=== PATIENT | female | born 1955 | race Caucasian/White ===

== ENCOUNTER 2017-03-30 07:42 | Emergency (ER) | payer BC ==
[2017-03-30 08:14] VITALS: BP 137/85
--- NOTE | 2017-03-30 11:11 | UC ---
Nataliya Rios Anna, scribed for Shakila Duarte DO on 03/30/17 at 0853 . Throat Pain/Nasal Yung HPI - HPI Summary HPI Summary: Patient is a 61 y/o female coming [place] [facility] [place] with an intermittent sore throat that began ten days ago. Per triage notes, the severity of the pain is described as 4/10. It hurts to swallow, though she is able to swallow her own spit. This has been accompanied by an intermittent ear ache, first in her right ear, then in her left ear. She has also had a productive cough with green sputum , accompanied by chest congestion, rhinorrhea, and watery eyes. Denies hemoptysis, SOB, nausea, emesis, abd pain, fever, and chills. 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 She started taking generic, non-drowsy Sugar at the onset, but the symptoms have not resolved. She tried an Rosa Maria seltzer, which did not alleviate the symptoms. She has not tried a Netti pot before. She had a known contact with a person who had bronchitis and has had more exposure to pollen and dust than normal. She reports having similar symptoms 1-3 times a year, which she sometimes attributes to allergies. Patient medications were reviewed this visit. - History of Current Complaint Chief Complaint: UCRespiratory Stated Complaint: SORE THROAT EAR PAIN Time Seen by Provider: 03/30/17 08:42 Hx Obtained From: Patient ?: No Onset/Duration: Gradual Onset, Lasting Weeks, Still Present Severity: Moderate Pain Intensity: 4 Pain Scale Used: 0-10 Numeric Cough: Sputum Appears - green Associated Signs & Symptoms: Positive: Dysphagia - pain. Negative: Drooling, Wheezing, Hoarseness, Sinus Discomfort, Fever, Vomiting - Allergies/Home Medications Allergies/Adverse Reactions: Allergies Allergy/AdvReac Type Severity Reaction Status Date / Time No Known Allergies Allergy Verified 10/29/13 15:44 Home Medications: Home Medications Aspirin [Aspirin 81 MG TAB] 1 tab PO DAILY 03/30/17 [History Confirmed 03/30/17] Omeprazole CAP* [Prilosec CAP* 20 MG] 1 tab PO DAILY 03/30/17 [History Confirmed 03/30/17] PMH/Surg Hx/FS Hx/Imm Hx Endocrine History Of: Denies: Diabetes, Thyroid Disease Cardiovascular History Of: Denies: Cardiac Disorders, Hypertension Respiratory History Of: Denies: COPD, Asthma GI/ History Of: Reports: Gastroesophageal Reflux Denies: Ulcer Cancer History Of: Denies: Breast Cancer - Surgical History Surgical History: Yes Surgery Procedure, Year, and Place: GALL BLADDER. HYSTERECTOMY - Family History Known Family History: Negative: Cardiac Disease, Hypertension, Diabetes - Social History Lives: With Family Alcohol Use: None Substance Use Type: None Smoking Status (MU): Never Smoked Tobacco - Immunization History Most Recent Influenza Vaccination: NO Review of Systems Constitutional: Negative Skin: Negative Eyes: Drainage ENT: Sore Throat, Ear Ache, Nasal Discharge Respiratory: Cough Cardiovascular: Chest Pain - chest congestion Gastrointestinal: Negative Genitourinary: Negative Motor: Negative Neurovascular: Negative Musculoskeletal: Negative Neurological: Negative Psychological: Negative All Other Systems Reviewed And Are Negative: Yes Physical Exam Triage Information Reviewed: Yes Appearance: Well-Appearing, No Pain Distress, Well-Nourished Vital Signs: Initial Vital Signs Temp 98.3 F 03/30/17 08:07 Pulse 71 03/30/17 08:07 Resp 16 03/30/17 08:07 BP 137/85 03/30/17 08:07 Pulse Ox 99 03/30/17 08:07 Vital Signs Reviewed: Yes Eyes: Positive: Conjunctiva Clear. Negative: Discharge ENT: Positive: Hearing grossly normal, Pharynx normal, TMs normal, Other: - pale , boggy nasal mucosa, allergic shiners. Negative: Tonsillar swelling, Tonsillar exudate, Trismus, Muffled/hoarse voice Neck exam: Normal Neck: Positive: Supple Respiratory: Positive: Lungs clear, Normal breath sounds, No respiratory distress, No accessory muscle use, Other: - Prolonged expiration at bases bialterally Cardiovascular: Positive: RRR, No Murmur Musculoskeletal Exam: Normal Neurological: Positive: Alert, Muscle Tone Normal Psychological Exam: Normal Psychological: Positive: Age Appropriate Behavior Skin Exam: Other - warm, dry, normal color Throat Pain/Nasal Course/Dx - Differential Dx/Diagnosis Differential Diagnosis/HQI/PQRI: Pharyngitis, Sinusitis, URI Provider Diagnoses: Allergies, Bronchospasm Discharge - Discharge Plan Condition: Stable Disposition: HOME Prescriptions: Albuterol HFA INHALER* [Ventolin HFA Inhaler*] 2 puff INH Q4H PRN #1 mdi PRN Reason: Sob/Wheezing Benzonatate CAP* [Tessalon 100 MG CAP*] 100 mg PO TID PRN #30 cap PRN Reason: Cough Fluticasone NASAL * [Flonase *] 2 spray BOTH NARES DAILY #1 btl guaiFENesin ER TAB [Mucinex*] 600 mg PO BID PRN #1 box PRN Reason: Cough Patient Education Materials: Benzonatate (By mouth), Albuterol (By breathing), Oxymetazoline (Into the nose), Allergies (ED), Bronchospasm (ED) Referrals: Ignacio Umanzor MD [Primary Care Provider] - (FOLLOW UP IN 3-5 DAYS IF NOT IMPROVING. FOLLOW UP SOONER IF YOUR SYMPTOMS WORSEN OR NEW SYMPTOMS DEVELOP.) Additional Instructions: TRY USING THE NETTI POT IN THE MORNINGS DISCUSSED. YOU MUST ALWAYS USE CLEAN WATER. REMEMBER, POSTURE IS AN IMPORTANT FACTOR IN SINUS DRAINAGE. MOVE YOUR NECK, BREATHE. AFTER USING THE NETI POT, USE THE NASAL DECONGESTANT SPRAY THEN GET INTO A WARM SHOWER. A FEW HOURS LATER USE NASAL STEROID. IN THE EVENING, YOU CAN REPEAT THE NASAL DECONGESTANT SPRAY. AFTER 3 DAYS, YOU SHOULD STOP THE NASAL DECONGESTANT SPRAY BUT CONTINUE TO USE THE NETI POT AND THE NASAL STEROID. TALK TO YOUR PCP ABOUT HOW LONG YOU SHOULD CONTINUE TO USE THE NASAL STEROID. NASAL CORTICOSTEROID INHALER: Nasal "cortisone" inhalers decrease swelling and inflammation in the nasal passages. Nasal steroids decrease the effects of allergy and infection without affecting your whole body. They do NOT cause the side effects we see with steroid shots or pills. These inhalers are a long-term investment in keeping your nose and sinuses clear. You probably won't notice any difference for at least a day. Sometimes it takes several days. Once you have noticed improvement, you can cut back on the inhaler. If your problem only occurs at certain times of the year, you can stop it when you' re better. There's no harm in using it for a long time. Some patients may notice a dry tight throat at first. If you develop severe pain, fever, or foul nasal drainage, see the doctor at once. NASAL SPRAYS AND DROPS: Decongestant nasal sprays and drops often give dramatic relief from congestion. They are often recommended for patients with sinus infection to assist with sinus drainage. Persons with high blood pressure should consult the doctor before using these nasal sprays. Afrin and Derek-Synephrine are common puts-bna-egqbuxu preparations. They should not be used for more than three days, as "rebound" congestion can occur - - the congestion flares as the drug wears off. A way of dealing with this rebound congestion problem is to medicate only one nostril each time, allowing the other nostril to recover from the medicine' s effects. When you no longer need the drug during the day, spray only one nostril each night. This helps you sleep well without severe rebound congestion. Call the doctor if you develop severe headache, palpitations, or chest pain. INHALED BRONCHODILATORS: You have received a prescription for an inhaled bronchodilator -- a medication which stimulates the airways in the lung to dilate. This improves the flow of air in asthma, bronchitis, and emphysema. These medicines have some similarity to adrenaline, and can cause similar side effects: shakiness, racing heart, and a sense of nervousness. These side effects decrease with time. Contact your doctor if these side effects are severe. Do not over-use the medicine. Too-frequent use of the inhaler may make it ineffective. Call your doctor if the inhaler is not controlling your symptoms at the prescribed doses. EXPECTORANT MEDICATION: WE SENT IN A SCRIPT FOR MUCINEX SO THAT IT IS EASIER FOR YOU TO PICK THE RIGHT MED AT THE PHARMACY. HOWEVER, YOU CAN ALSO GO TO THE [employer] [facility] AND BUY PLAIN GUAIFENESIN WITHOU BINDERS OR FILLERS. An expectorant medicine has been prescribed. This type of drug makes mucous thinner, helping the sinuses, nose, and bronchial tubes to remain free of pus and mucous. Expectorants make a cough less severe and more comfortable, and help infected sinuses drain. In general, antihistamines defeat the purpose of the expectorant by making mucous thicker. They should be avoided unless specifically recommended by your physician. TESSALON PERLES: You have received a prescription for Tessalon Perles (benzonatate). This is a non-narcotic medicine for relief of cough. It usually works in about 15- 20 minutes and lasts around four hours. Tessalon Perles should be swallowed. They should not be chewed or dissolved in the mouth (this can produce temporary numbing of the mouth and choking can occur). If you develop any adverse effects such as wheezing, shortness of breath, hives, rash, itching, or lightheadedness, please return at once. The documentation as recorded by the Nataliya mahoney Anna accurately reflects the service I personally performed and the decisions made by , Shakila Duarte DO.
== END 2017-03-30 09:37 | disposition home or self-care (01) ==
LOC: UCEAST 07:42
DX: J30.9 Allergic rhinitis, unspecified (principal); J98.01 Acute bronchospasm; K21.9 Gastro-esophageal reflux disease without esophagitis; Z90.49 Acquired absence of other specified parts of digestive tract; Z90.710 Acquired absence of both cervix and uterus
CPT/HCPCS: 99212; G0463

== ENCOUNTER 2019-11-25 10:01 | Inpatient (IN) | payer MEDICARE ==
--- NOTE | 2019-11-16 12:45 | HP ---
HISTORY AND PHYSICAL: DATE OF ADMISSION/SURGERY: 11/25/19 DATE OF OFFICE VISIT: 11/12/19 SURGEON: Sade Bonner MD * (DICTATED BY CARLOS EDUARDO MONTIEL) PROCEDURE: Left total knee arthroplasty. CHIEF COMPLAINT: Left knee pain. HISTORY OF PRESENT ILLNESS: Ms. Chris is a 63-year-old female with end-stage osteoarthritis of the left knee. She has failed conservative treatment and elected to proceed with a left total knee arthroplasty. PAST MEDICAL HISTORY: GERD and sleep apnea. PAST SURGICAL HISTORY: Cholecystectomy and hysterectomy. CURRENT MEDICATIONS: 1. Omeprazole 20 mg a day. 2. Multivitamin. 3. Claritin. ALLERGIES: No known drug allergies. FAMILY HISTORY: Cancer and Alzheimer's. SOCIAL HISTORY: She is a 63-year-old female. She lives with her spouse. She does not smoke or use drugs or alcohol. REVIEW OF SYSTEMS: A complete 14-point review of systems was reviewed with the patient, it was positive for GERD. She denies history of DVT, PE, hepatitis, HIV, or anesthesia problems. PHYSICAL EXAMINATION GENERAL: She is well developed, well nourished, in no acute distress. VITAL SIGNS: She stands 65 inches tall, weighs 253 pounds. Her blood pressure is 142/74, her heart rate is 60. HEENT: Normocephalic, atraumatic. NECK: Supple. No palpable lymph nodes. PULMONARY: The lungs are clear to auscultation bilaterally. CARDIO: Regular rate and rhythm. Strong S1, S2. ABDOMEN: Soft, nontender, nondistended. MUSCULOSKELETAL: Left lower extremity: The skin is intact. There are no open wounds or abrasions. There is a moderate effusion of the left knee joint. She has some tenderness over the medial and lateral joint line. Range of motion is 5 to 120 degrees of flexion with patellofemoral crepitus. She is able to dorsiflex and plantarflex. She has a 2+ dorsalis pedis pulse and intact sensation. ASSESSMENT AND PLAN: Ms. Chris is a 63-year-old female with end-stage osteoarthritis of the left knee. She has failed conservative treatment and elected to proceed with a left total knee arthroplasty. The surgery is scheduled for 11/25/[address] Bonner discussed the risks and benefits of the surgery at today's visit and all of her questions were answered. She will follow up with Dr. Bonner 2 weeks after the surgery. CARLOS EDUARDO MONTIEL [id number]/CPS #: [id number] ACACIA
[~2019-11-25 10:01] MED LIST: Acetaminophen TAB* 325 MG PO ONE; Buffered Lidocaine 1% SYRIN* 1 ML/SYRINGE INTRADERM ONE; Gabapentin CAP(*) 300 MG PO ONE; Lactated Ringers 1000 ML Bag* 1,000 ML IV SCH; Midazolam* 1 MG/ML 2 ML VIAL (2 MG) ONE; Tranexamic Acid 1,000 MG in NS 0.9% 50 ML* (outpatient use) IV SCH; celeCOXIB CAP* 200 MG PO ONE; fentaNYL* 50 MCG/ML 2 ML VIAL (100 MCG VIAL) ONE
[2019-11-25] MEDS ORDERED: Buffered Lidocaine 1% SYRIN* 1 ML/SYRINGE INTRADERM ONE (10:30)
[2019-11-25] MEDS ORDERED: celeCOXIB CAP* 200 MG ONE (10:30)
[2019-11-25] MEDS ORDERED: Gabapentin CAP(*) 300 MG ONE (10:30)
[2019-11-25] MEDS ORDERED: ceFAZolin 2 GM PREMIX in ORs 2 GM/50 ML BAG ONE (10:31)
[2019-11-25] MEDS ORDERED: HYDROmorphone INJ1* 1 MG/ML SYRINGE IV PRN (11:32)
[2019-11-25] MEDS ORDERED: Naloxone* 0.4 MG/ML 1 ML VIAL IV PRN (11:32)
[2019-11-25] MEDS ORDERED: Acetaminophen TAB* 325 MG ONE (11:32)
[2019-11-25] MEDS ORDERED: Lidocaine 1% INJ* 10 MG/ML 30 ML SDV ONE (11:40)
[2019-11-25] MEDS ORDERED: Bupivacaine 0.5% SDV PF* 30ML VIAL ONE (11:40)
[2019-11-25] MEDS ORDERED: Ondansetron INJ* 2 MG/ML VIAL ONE (12:48)
[2019-11-25] MEDS ORDERED: EPHEDrine (Pressors)* 50 MG/ML VIAL ONE (12:48)
[2019-11-25] MEDS ORDERED: Phenylephrine 40 MCG/ML SYRINGE ONE (12:48)
[2019-11-25] MEDS ORDERED: Dexamethasone IV* 4 MG/ML 1 ML (4 MG) ONE (12:48)
[2019-11-25] MEDS ORDERED: Propofol* 500 MG/50 ML BTL ONE (12:48)
[2019-11-25] MEDS ORDERED: Propofol* 10 MG/ML 20 ML BTL ONE (13:37)
[2019-11-25] MEDS ORDERED: Midazolam* 1 MG/ML 2 ML VIAL (2 MG) ONE (13:42)
[2019-11-25] MEDS ORDERED: Acetaminophen TAB* 325 MG PO PRN (15:08)
[2019-11-25] MEDS ORDERED: Ondansetron ODT TAB* 4 MG PO PRN (15:08)
[2019-11-25] MEDS ORDERED: diPHENhydraMINE PO* 25 MG PO PRN (15:08)
[2019-11-25] MEDS ORDERED: diPHENhydraMINE IV* 50 MG/ML 1 ml VIAL (BENADRYL) IV PRN (15:08)
[2019-11-25] MEDS ORDERED: oxyCODONE/Acetamin 5/325 MG* TAB PO PRN (15:08)
[2019-11-25] MEDS ORDERED: Morphine INJ* 2 MG/ML 1 ML SYRINGE (TWO MG - NEW SYRINGE VERSION) IV PRN (15:08)
[2019-11-25] MEDS ORDERED: Ondansetron INJ* 2 MG/ML VIAL IV PRN (15:08)
[2019-11-25] MEDS ORDERED: Cyclobenzaprine TAB* 10 MG PO PRN (15:08)
[2019-11-25] MEDS ORDERED: Magnesium Hydroxide LIQ* 30 ML UDC PO PRN (15:08)
[2019-11-25] MEDS ORDERED: Fluticasone NASAL SPRAY 50MCG* 16 gm SPRAY BTL BOTH NARES PRN (15:10)
[2019-11-25] MEDS ORDERED: Nystatin CREAM* 15 GM TUBE TOPICAL PRN (15:10)
[2019-11-25] MEDS ORDERED: Albuterol HFA INHALER* 8 gm MDI INH PRN (15:10)
[2019-11-25] MEDS ORDERED: Lactated Ringers 1000 ML Bag* 1,000 ML IV SCH (16:00)
[2019-11-25] MEDS ORDERED: oxyCODONE SR TAB(*) 10 MG TAB.SR ONE (16:17)
[2019-11-25] MEDS: oxyCODONE TAB* 5 MG TAB PO PRN ×3 (16:19→20:10)
[2019-11-25] MEDS ORDERED: oxyCODONE TAB* 5 MG TAB ONE (16:21)
--- NOTE | 2019-11-25 16:50 | OP ---
Operative Report - Blank - Operative Report Date of Operation: 11/25/19 Note: MARLENY PILLAI 1955 Date of Surgery: 11/25/19 Sade Bonner MD Azure Architect: Bernard THIBODEAUX did help throughout the procedure with preparation of the knee, wound retraction, manipulation of the knee, and wound closure. Anesthesiologist: Dr. Diaz Anesthesia Type: Spinal Preoperative Diagnosis: Left severe degenerative osteoarthritis of the knee Postoperative Diagnosis: As above Procedure Performed: Left Total Knee Arthroplasty Tourniquet time: 52 minutes Complications: None Specimen: Bone and cartilage from the left knee joint sent to pathology. Hardware Used: Cemented Gonzalez and Nephew total knee hardware was used - For the femur a size 6 left narrow oxinium legion posterior stabilized femoral component , for the tibia a size 4 left farshad II tibial baseplate, for the insert a size 9mm 3-4 high flex posterior stabilized articular polyethylene insert, and for the patella a size 32 3-peg all poly patella. Brief History/Indication: MARLENY PILLAI was known in clinic and had a history of severe left knee pain and swelling. She failed conservative treatment with anti-inflammatories, pain pills, intra-articular injections and physical therapy. She elected to undergo left total knee arthroplasty due to continued pain and decreased quality of life. Radiographs showed severe end stage osteoarthritis of the knee with bone on bone contact. Informed consent was obtained from the patient. She understood the risks of surgery included but were not limited to: bleeding, infection, damage to nearby structures, intraoperative fracture, nerve palsy, failure of the hardware, early loosening, knee stiffness or loss of motion, anesthesia complications, stroke, heart attack , blood clot and . She wished to proceed. Intra-Operative Findings: Intraoperatively the patient was noted to have severe loss of cartilage in all 3 compartments of the knee. Description of the Procedure: MARLENY PILLAI was identified in the preanesthesia unit. Her left knee was marked as the correct operative side. Informed consent was signed and placed in the chart. The patient was taken to the operating room and placed under anesthesia without complication. A kerns catheter was placed. A tourniquet was placed on the left thigh. The left lower extremity was prepped and draped in the usual sterile fashion. Preoperative time-out was made to correctly identify the patient, side and site. Appropriate intraoperative antibiotics were given within one hour of incision. Tourniquet was inflated. A midline incision was made and carried sharply down to the extensor mechanism. A new 10 blade was used to make a standard medial parapatellar arthrotomy. The patella was subluxed laterally. Electrocautery was used to dissect soft tissue off the superomedial tibia to the midsagittal plane. The knee was flexed up. The anterior horn of the lateral meniscus and the ACL were sharply incised. A drill was used to enter the distal femur. The intramedullary distal femoral cutting guide was pinned on the distal femur. The oscillating saw was used to make the distal femoral cut. The external rotation guide was pinned on the distal femur and the distal femur was sized to a size 6. The size 6 multi-cutting jig was pinned on the distal femur. The oscillating saw was used to make the appropriate 4 chamfer cuts. Next the PCL was completely released. The extramedullary tibial cutting guide was pinned on the proximal tibia and the oscillating saw was used to make the proximal tibial cut perpendicular to the mechanical axis of the tibia. The bone was carefully removed. The knee was brought out into full extension. The spacer block was placed and had excellent fit with the knee in full extension. The medial and lateral ligaments were well balanced. The flexion and extension gaps were well balanced. The knee was flexed up. 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 Any remaining meniscus was removed with electrocautery. Curved osteotome was used to remove any posterior osteophytes. The tibial tray and drop ramiro were placed and confirmed a satisfactory tibial cut. The size 6 narrow left femoral trial was impacted onto the distal femur. This trial had excellent fit and stability. The box for the posterior stabilized implant was prepared using a box cut osteotome and a reamer. Next a tibial tray trial and 9 mm insert trial was placed. The knee was taken through a range of motion and had full extension to 130 degrees of flexion. Patellofemoral tracking was satisfactory. The patella was inverted and sized to a size 32. Three peg holes were drilled through the size 32 drill guide. The trial patella was placed and the knee was taken through a range of motion. There was satisfactory patellofemoral tracking. All trials were removed. The tibia was subluxed anteriorly and sized to a size 4. The proximal tibial was prepared with a size 4 keel punch. All bony cut surfaces were irrigated with sterile saline and dried. Final implants were cemented into place starting with the tibia, followed by the femur, and last the patella. A 9 mm insert trial was placed and the knee was brought into full extension. Tourniquet was turned down and the knee was copiously irrigated with sterile saline. Electrocautery was used to obtain meticulous hemostasis. Once the cement had fully cured, the insert trial was removed. Any excess cement was removed from around the hardware and capsule. Final insert chosen was a 9 mm posterior stabilized Farshad II articular insert size 3-4. Stability of the insert was checked and noted to be stable. The extensor mechanism was closed using number 1 vicryls. The rest of the incision was closed in a layered fashion using 0 and 2-0 vicryls. The skin was closed using 3-0 nylon suture. Sterile xeroform, 4x4s and webril were used to cover the incision. Ko wrap and cold pack were used to cover the dressings. The patients anesthesia was reversed without difficulty. She was taken to the PACU in stable condition. Intended weight-bearing will be as tolerated.
[2019-11-25] MEDS: Docusate CAP* 100 MG PO SCH (20:11)
[2019-11-25] MEDS: ceFAZolin 1 GM ADVAN(*) 1 GM in NS 0.9% 50 ML* 50 ML IVPB SCH (20:14)
[2019-11-25] MEDS: Magnesium Hydroxide LIQ* 30 ML UDC PO SCH (20:19)
[2019-11-25] MEDS ORDERED: MELATONIN PO SCH (21:00)
[2019-11-26] MEDS: oxyCODONE/Acetamin 5/325 MG* TAB PO PRN ×3 (00:39→16:09)
[2019-11-26] MEDS: oxyCODONE TAB* 5 MG TAB PO PRN ×2 (03:52→12:56)
[2019-11-26] MEDS: ceFAZolin 1 GM ADVAN(*) 1 GM in NS 0.9% 50 ML* 50 ML IVPB SCH ×2 (04:30→13:39)
[2019-11-26 05:55] LABS: Hematocrit 32 % (35-47); Hemoglobin 11.4 g/dL (12.0-16.0); Mean Platelet Volume 9.1 fL (7.4-10.4); Platelet Count 151 10^3/uL (150-450)
[2019-11-26 06:04] LABS: BUN/Creatinine Ratio 15.2 (8-20); Calcium 8.9 mg/dL (8.6-10.3); EGFR African American 108.8 (>60); EGFR Non-African American 89.9 (>60); Potassium 4.3 mmol/L (3.5-5.0)
[2019-11-26] MEDS ORDERED: Pantoprazole TAB * 40 MG TAB PO SCH (09:00)
[2019-11-26] MEDS ORDERED: Vitamin THERAPEUTIC TAB PO SCH (09:00)
[2019-11-26] MEDS ORDERED: Apixaban* 2.5 MG TAB PO SCH (09:00)
[2019-11-26] MEDS: Magnesium Hydroxide LIQ* 30 ML UDC PO SCH (09:29)
[2019-11-26] MEDS: Docusate CAP* 100 MG PO SCH (09:30)
--- NOTE | 2019-11-26 11:16 | PN ---
Progress Note - Progress Note Date of Service: 11/26/19 SOAP: Subjective: [Pt was seen this am lying in bed. She states that she is doing well but is worried because she has 25 steps at home. She states that she would like another day at the hospital to have PT. She denies any chest pain, SOB, nausea or vomiting. ] Objective: [General: Pt is alert and oriented x 3. NAD MSK, LLE: Dressing is c/d/i. +df/pf. NVI, calf soft and non tender. 2+ DP pulse] Vital Signs Temp 98.6 F 11/26/19 07:23 Pulse 65 11/26/19 07:23 Resp 16 11/26/19 11:12 BP 110/43 11/26/19 07:23 Pulse Ox 97 11/26/19 07:23 Intake & Output 11/25/19 11/26/19 11/26/19 18:59 06:59 18:59 Intake Total 2500 1455 120 Output Total 1500 2400 Balance 1000 -945 120 Weight 254 lb 3.2 oz Intake: IV Fluids 2500 55 ABX - CEFAZOLIN 55 lr 2500 Oral 1400 120 Output: Urine 900 Pollard 1500 1500 Other: Estimated Void Medium Estimated Blood Loss 250 Comment # Voids 1 Assessment: [POD 1 LTKA] Plan: [Eliquis 2.5 mg bid x 30 days PT/OT pain management DC home tomorrow if feeling good about stairs. ]
[2019-11-26 11:33] VITALS: BP 126/65
--- NOTE | 2019-11-26 12:42 | PN ---
Progress Note - Progress Note Date of Service: 11/26/19 SOAP: Subjective: [Pt was seen sitting up in chair. States that she is doing well. Her pain is well controlled. She denies any chest pain, SOB, nausea or vomiting. She would like to go home today. ] Objective: [General: Pt is alert and oriented x3. NAD MSK, LLE: Dressing is c/d/i. CHanged and incision is c/d/i. +df/pf, calves are soft and non tender. 2+ DP pulse. ] Vital Signs Temp 98.7 F 11/26/19 11:32 Pulse 69 11/26/19 11:32 Resp 18 11/26/19 11:32 BP 126/65 11/26/19 11:32 Pulse Ox 100 11/26/19 11:32 Intake & Output 11/25/19 11/26/19 11/26/19 18:59 06:59 18:59 Intake Total 2500 1455 120 Output Total 1500 2400 Balance 1000 -945 120 Weight 254 lb 3.2 oz Intake: IV Fluids 2500 55 ABX - CEFAZOLIN 55 lr 2500 Oral 1400 120 Output: Urine 900 Pollard 1500 1500 Other: Estimated Void Medium Estimated Blood Loss 250 Comment # Voids 1 Assessment: [POD 1 LTKA] Plan: [PT Eliquis 2.5 mg po bid x 30 days Percocet for pain DC home today]
--- NOTE | 2019-11-26 12:44 | DS ---
Orthopedic Discharge Summary - Discharge Summary Date of Admission:11/25/19 Date of Discharge: 11/26/2019 Date of Surgery: 11/25/2019 Attending Orthopedic Provider: Dr. Bonner Pre-operative Diagnosis: Left knee osteoarthritis Operative Procedure: Left total knee arthroplasty Disposition of Patient: Home Condition of Patient: Good History: MARLENY PILLAI is a 63 year old F with years of increasingly severe left knee pain. Patient has failed conservative management and has elected to undergo a left total knee replacement Hospital Course: MARLENY was admitted to [facility] on 11/25/19. Patient underwent a left total knee replacement without complication followed by a brief recovery in PACU and transfer to the Short Stay Surgical Unit in stable condition. Our physical therapy and occupational therapy also participated in this patients care. Post-op day 1: patient was alert and in no acute distress. Dressing was clean, dry and intact. Operative extremity dorsiflexion and plantarflexion intact, sensation intact to light touch distally , DP2+. Dressing was changed, incision was clean, dry and intact. Patient was deemed to be medically and orthopedically stable for discharge. Physical therapy goals were met. Home Medications Medication Instructions Recorded Confirmed Type Multivitamin [Multivitamins] 1 cap PO QAM 10/29/13 11/25/19 History Nystatin CREAM* [Nystatin Cream*] 100,000 units TOPICAL TID PRN 10/29/13 History Albuterol HFA INHALER* [Ventolin 2 puff INH Q4H PRN #1 mdi 03/30/17 11/12/19 Rx HFA Inhaler*] Omeprazole CAP (NF) [Prilosec CAP* 1 tab PO QAM 03/30/17 11/25/19 History 20 MG] Fluticasone NASAL * [Flonase *] 2 spray BOTH NARES DAILY PRN 11/12/19 11/25/19 History Melatonin 0.75 mg PO BEDTIME 11/12/19 11/25/19 History Polyethylene Glycol 3350* 17 gm PO QAM 11/12/19 11/25/19 History [Miralax*] LoraTADine TAB(NF) [Claritin 10 MG 10 mg PO DAILY 11/25/19 11/25/19 History TAB(NF)] Discharge Instructions following Orthopedic Surgery: Activity: * Weight Bearing as tolerated * Continue physical therapy and occupational therapy exercises as shown Wound care: * OK to shower on post-op day 3, no bathing, swimming, or submerging wound. * Use gentle soap, pat dry. Cover with gauze, MARY wrap or tape. * Visiting home nurse to do wound checks. Call Orthopedic office for: * Increased drainage * Redness * Increased pain * Fever Go to ER with shortness of breath or chest pain. Diet: * Regular diet * Increase fluids and fiber to prevent constipation. * Continue to use stool softeners, call office if no bowel motion within 48 hours. Medications See Home Medication List in your packet for medications that you should take after discharge. DVT Prophylaxis: Eliquis Dosin.5 mg, 1 tab every 12 hours x 30 days Pain Control: Percocet Dosin/325 mg 1-2 tabs by mouth every 4-6 hours as needed for pain. Maximum of 10 tabs per day. Please note that Percocet contains Tylenol (acetaminophen). Maximum daily dose of Tylenol is 4000 mg from all sources. Antibiotics are required prior to any dental work. FOLLOW UP: Follow up with [Ha] Within 10-14 days, call for appointment Please call our office with any questions or concerns ([phone])
== END 2019-11-26 16:10 | disposition home or self-care (01) | DRG 470 ==
LOC: AA 10:01 → SSU 17:14
PROVIDERS: ADMIT Orthopaedic Surgery Adult Reconstructive Orthopaedic Surgery; ATTEND Orthopaedic Surgery Adult Reconstructive Orthopaedic Surgery
PROC: 0SRD069 Replacement of Left Knee Joint with Oxidized Zirconium on Polyethylene Synthetic Substitute, Cemented, Open Approach (ICD-10-PCS; principal; 2019-11-25 15:00)
DX: M17.12 Unilateral primary osteoarthritis, left knee (principal); M25.462 Effusion, left knee; G43.909 Migraine, unspecified, not intractable, without status migrainosus; E66.9 Obesity, unspecified; K21.9 Gastro-esophageal reflux disease without esophagitis; G47.33 Obstructive sleep apnea (adult) (pediatric); J45.909 Unspecified asthma, uncomplicated; M25.762 Osteophyte, left knee; Z68.41 Body mass index [BMI] 40.0-44.9, adult; Z79.899 Other long term (current) drug therapy; Z87.442 Personal history of urinary calculi; Z87.891 Personal history of nicotine dependence
CPT/HCPCS: 36415; 80048; 85014; 85018; 85049; 88305; 88311; A9270-GY; C1776; J0690; J1100; J2250; J2405; J2704; J3010; J3490